=== PATIENT | male | born 1945 | race Two or more races ===

== ENCOUNTER → 2016-12-18 | Outpatient (CLI) | payer MEDICARE, OTHER ==
[~2016-12-18] MED LIST: ADVAIR DIS14 PUFF/I1 INH; GLUCOPHAGE500 MG PO; LIPITOR10 MG PO; VENTOLIN HFA8 GM INH; ZESTORETIC 20-1 EAC1 PO
== END | disposition short-term general hospital (02) ==
LOC: CLPULM 10:50
DX: G47.33 Obstructive sleep apnea (adult) (pediatric) (principal); J45.909 Unspecified asthma, uncomplicated; E66.9 Obesity, unspecified; E11.9 Type 2 diabetes mellitus without complications; E78.5 Hyperlipidemia, unspecified; R91.1 Solitary pulmonary nodule